=== PATIENT | female | born 1965 | race American Indian/Alaskan Native ===

== ENCOUNTER 2021-08-28 10:55 | Emergency (ER) | payer SELFPAY ==
[2021-08-28 11:21] VITALS: BP 142/88
[2021-08-28] MEDS ORDERED: HYDROcodone/ACETAMINOPHEN 5-325 MG TAB PO ONE (11:49)
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
== END 2021-08-28 14:09 | disposition home or self-care (01) ==
LOC: ED 10:55
DX: S22.32XA Fracture of one rib, left side, initial encounter for closed fracture (principal); S61.451A Open bite of right hand, initial encounter; Y08.89XA Assault by other specified means, initial encounter; Y93.89 Activity, other specified; Y92.89 Other specified places as the place of occurrence of the external cause; Y99.8 Other external cause status
CPT/HCPCS: 72070; 99283